=== PATIENT | female | born 1950 | race African-American/Black ===

== ENCOUNTER 2019-10-29 16:32 | Emergency (ER) | payer OTHER, MEDICAID ==
[~2019-10-29] VITALS: Ht 160 cm; Wt 92.5 kg
[2019-10-29 16:34] VITALS: BP 168/90
--- NOTE | 2019-10-29 16:34 | NUR ---
MICHAELLE SOLIS AND PLACED IN HALLWAY BED C.
--- NOTE | 2019-10-29 16:39 | NUR ---
PT C/O ANXIETY/PANIC ATTACK S/P FAMILY MEMBER SHOWING UP AT HOUSE. PT IS ABLE TO SIT STILL IN THE BED. NO DISTRESS NOTICED AT THIS TIME. PATIENT STATES PAIN OF 0/10 AT THIS TIME; VSS; PATIENT POSITIONED FOR COMFORT; HOB ELEVATED; BEDRAILS UP X1; BED DOWN. ER MD MADE AWARE OF PT STATUS.
[2019-10-29 18:05] VITALS: BP 174/89
--- NOTE | 2019-10-29 18:05 | NUR ---
Patient discharged with v/s stable. Written and verbal after care instructions given and explained. Patient alert, oriented and verbalized understanding of instructions. Ambulatory with steady gait. All questions addressed prior to discharge. ID band removed. Patient advised to follow up with PMD. Rx of VISITRIL, AND IBUPROFEN given. Patient educated on indication of medication including possible reaction and side effects. Opportunity to ask questions provided and answered.
--- NOTE | 2019-10-29 18:05 | NUR ---
PT GIVEN PHONE TO CALL FOR RIDE, PT WHEELCHAIRED TO LOBBY UNITL RIDE ARRIVES.
== END 2019-10-29 18:05 | disposition home or self-care (01) ==
LOC: MED 16:32
DX: F41.9 Anxiety disorder, unspecified (principal); G44.209 Tension-type headache, unspecified, not intractable; I12.9 Hypertensive chronic kidney disease with stage 1 through stage 4 chronic kidney disease, or unspecified chronic kidney disease; J45.909 Unspecified asthma, uncomplicated; N18.9 Chronic kidney disease, unspecified
CPT/HCPCS: 70450; 99284